=== PATIENT | male | born 1960 | race Caucasian/White ===

== ENCOUNTER 2022-08-15 19:14 | Emergency (ER) | payer OTHER, SELFPAY ==
--- NOTE | ~2022-08-15 | CT_ITS ---
EXAMINATION: CT CERVICAL SPINE WITHOUT CONTRAST CLINICAL INFORMATION: Trauma COMPARISON: None TECHNIQUE: Axial imaging with coronal and sagittal reformatted images. This CT examination was performed using dose optimization techniques as appropriate, variously including the following: *Automated exposure control *Adjustment of mA and/or kV according to patient size (this includes techniques or standardized protocols for targeted exams where dose is matched to indication/reason for exam; i.e. extremities or head) *Use of iterative reconstruction technique DLP: 289 mGy-cm FINDINGS: Degenerative changes. No acute fracture or dislocation. Mixed solid and linear density in the right upper lung. Measures 1.[address]/CT cervical spine wo IV con IMPRESSION: No fracture or dislocation of the cervical spine. Degenerative changes are noted. There is a mixed solid and linear density in the right upper lung. CT would be recommended the chest to fully evaluate. This may be done on an outpatient basis.
--- NOTE | ~2022-08-15 | CT_ITS ---
CT head/brain wo IV con CLINICAL INFORMATION: Head strike COMPARISON: No prior CT scan available for comparison. TECHNIQUE: Department standard protocol. This CT examination was performed using dose optimization techniques as appropriate, variously including the following: *Automated exposure control *Adjustment of mA and/or kV according to patient size (this includes techniques or standardized protocols for targeted exams where dose is matched to indication/reason for exam; i.e. extremities or head) *Use of iterative reconstruction technique DLP: 888 mGy-cm FINDINGS: CEREBRAL HEMISPHERES: There is no evidence of intra-axial or extra-axial mass, hemorrhage or acute infarct. BRAIN PARENCHYMA: Normal lima-white matter differentiation. SUBDURAL SPACE: No bleed. BASAL GANGLIA AND PINEAL GLAND: Unremarkable VENTRICLES: Symmetric and normal in size. CEREBELLUM AND BRAINSTEM: No space-occupying mass, hemorrhage or acute infarct. CEREBELLOPONTINE ANGLES: No lesion found. ORBITS: No intraorbital mass. VESSELS: Unremarkable SKULL BASE: Unremarkable INCLUDED SINUSES AT SKULL BASE: Clear SKULL AND SKIN: No fracture or bone lesion found. CT/CT head/brain wo IV con IMPRESSION: No CT evidence of intracranial space-occupying mass, bleed or infarct.
--- NOTE | ~2022-08-15 | XR_ITS ---
EXAMINATION: XR CHEST CLINICAL INFORMATION: Fall COMPARISON: None TECHNIQUE: Frontal view of the chest was obtained. FINDINGS: There is no displaced fracture seen. No pneumothorax. No effusion. Low lung volumes. Mild basilar markings. Cardiac silhouette is within normal limits. The mediastinum does not appear widened. XR/XR chest 1V IMPRESSION: No acute finding. Mild bilateral basilar markings are noted.
[2022-08-15 19:18] VITALS: BP 128/76; PULSE 86; RESP 18; O2SAT 98; BMI 21.7
--- NOTE | 2022-08-15 19:21 | ECG_ITS ---
Test Reason : fall Blood Pressure : / mmHG Vent. Rate : 076 BPM Atrial Rate : 076 BPM P-R Int : 130 ms QRS Dur : 084 ms QT Int : 394 ms P-R-T Axes : 071 032 051 degrees QTc Int : 443 ms Normal sinus rhythm Normal ECG No previous ECGs available Referred By: Kaushal Joiner Electronically Signed By:Ankur Mcrae
[2022-08-15 19:23] VITALS: BP 146/77; PULSE 86; RESP 18; O2SAT 97
--- NOTE | 2022-08-15 19:25 | ED_ITS ---
HPI - General Adult General Chief complaint: Head Injury Stated complaint: etoh/fall Time Seen by Provider: 08/15/22 19:20 Source: patient, EMS and police Mode of arrival: EMS Limitations: other (alcohol) History of Present Illness HPI narrative: This is a 62-year-old male presenting to department for evaluation of acute alcohol intoxication, patient very intoxicated unable to provide history review of systems. However, according to EMS patient had a witnessed fall with head strike, no loss of consciousness, patient is not on blood thinners. Patient has been drinking all day. Patient uncooperative on arrival. Refused C-collar for EMS and was refusing when here. Unable to obtain history review of systems from patient. Related Data Allergies Allergy/AdvReac Type Severity Reaction Status Date / Time diphenhydramine Allergy Unknown SWELLING Unverified 02/21/20 16:13 [From [facility]] Review of Systems Review of Systems: Yes Unobtainable due to mental status PMFSH Past Medical History Attestation statement: The following information was validated with the patient. Source: old records reviewed and nursing notes reviewed Social History Social History Advance Directives: No Advance Directives Information Provided: No Physical Exam ED Vital Signs: Vital Signs - 24 hr 08/15/22 19:18 08/15/22 19:23 08/15/22 19:44 Temperature 98.0 F Pulse Rate 86 86 78 Respiratory Rate 18 18 16 Blood Pressure 128/76 146/77 H 142/86 H Pulse Oximetry 98 97 98 Oxygen Delivery Method Room Air Room Air Room Air BMI result Body Mass Index 21.7 vss Appearance: Alert.? Oriented X3.? No acute distress.?Smells like alcohol Head: Normocephalic, atraumatic, no step-offs or deformities + hematoma to the left side of occiput Eyes: Pupils equal, round and reactive to light.? Neck: Normal inspection.? Neck supple.? CVS: Normal heart rate and rhythm.? Pulses normal.? Respiratory: No respiratory distress.? Breath sounds normal.? Abdomen: Soft and nontender.? Skin: Skin warm and dry.? Normal skin color.? Normal skin turgor.? Extremities: No lower extremity edema.? No calf ttp. 5/5 strength to bilateral upper and lower extremities Back: No midline tenderness, no C-spine tenderness, full range of motion, no CVA tenderness bilaterally Neuro: Oriented X 3.? No motor deficit.? No sensory deficit. CN 2-12 intact . Ambulating w/ steady gait and normal coordinaiton Course Reevaluation(s) Reevaluation #1: CBC appears to be around normal limits. It does however show a normocytic anemia which is likely patient's baseline. Chemistry with no acute electrolyte abnormalities requiring intervention. Coags normal. UA without infection. Urine toxicology negative. Ethanol level 330 consistent with acute alcohol intoxication. Patient COVID negative. Head CT with no evidence of intracranial space-occupying mass bleed or infarct. No fracture dislocation of the cervical spine. Degenerative changes noted. Mixed solid and linear density in the right upper lung, chest CT recommended on an outpatient basis, will attach these results to patient's discharge with recommendations. No acute findings in the chest x-ray. Mild bilateral bibasilar markings are noted. Patient vital signs stable. Alert and oriented, ambulating with steady gait. At this time patient will be placed into observation to allow more time for patient to reach clinical sobriety. At time patient is sober patient can be discharged home with safe ride. Educated patient on diagnosis and treatment plan, answered all question, patient verbalizes understanding. At this time patient will be discharged home, advised to return with new or worsening symptoms. Educated on worrisome signs and symptoms and when to return. At this time I feel comfortable discharge home. Time: 21:50 Medical Decision Making Medical Decision Making [facility] Narrative: 1919 62 year old male presents w/ acute alcohol intoxication and whitnessed fall w/ head strike wo LOC. Limited history and review of systems secondary to patient being very intoxicated. Patient uncooperative on arrival, Physical examination with small hematoma to the posterior aspect left occiput with dry blood. No active bleeding. Neuro nonfocal. GCS 15. Likely alcohol intoxication with concussion without loss of consciousness. Unlikely intracranial hemorrhage, stroke, posterior stroke. I do not suspect metabolic disturbances however will rule out electrolyte abnormalities. Plan medical clearance in sobriety. Will obtain head imaging. No need for repair as patient has hematoma is non bleeding and has dried blood Differential Diagnosis Differential Diagnoses: The differential diagnosis associated with the presentation includes Likely alcohol intoxication with concussion without loss of consciousness. Unlikely intracranial hemorrhage, stroke, posterior stroke. I do not suspect metabolic disturbances however will rule out electrolyte abnormalities. Admission/Observation Consideration of admission/observation: Escalation of care including admission/observation considered Unlikely Lab Data MDM Lab Attestation statement: I reviewed the patient's lab results. 08/15/22 19:35 08/15/22 19:35 Labs: Lab Results 08/15/22 08/15/22 08/15/22 Range/Units 19:35 19:35 19:35 WBC 6.8 (4.8-10.8) X10*3/uL RBC 4.40 L (4.60-5.80) X10*6/uL Hgb 13.4 L (14.0-18.0) g/dl Hct 41.2 L (42.0-52.0) % MCV 93.6 (80.0-98.0) fL MCH 30.5 (27.0-33.0) pg MCHC 32.5 (31.0-36.0) g/dl RDW 14.0 (11.0-16.0) % Plt Count 303 (160-400) X10*3/uL MPV 9.0 L (9.4-12.4) fL Immature Gran % (Auto) 0.3 (0.0-0.4) % Neut % (Auto) 64.9 (45-73) % Lymph % (Auto) 27.3 (20-40) % [place] % (Auto) 5.8 (2-11) % Eos % (Auto) 0.7 (0-4) % Baso % (Auto) 1.0 (0-2) % Lymph # (Auto) 1.9 (1.2-4.9) X10*3/uL [place] # (Auto) 0.4 (0.1-1.2) X10*3/uL Eos # (Auto) 0.1 (0.0-0.4) X10*3/uL Baso # (Auto) 0.1 (0.0-0.2) X10*3/uL Abs Immat Gran (auto) 0.02 (0.00-0.03) X10*3/uL Absolute Neuts (auto) 4.4 (2.0-8.3) x10*3/uL Absolute Nucleated RBC 0.000 (0.0-0.012) X10*3/uL Nucleated RBC % (auto) 0.0 (0.0-0.2) /100WBC PT 10.2 (10.0-13.1) SEC INR 0.9 (0.9-1.1) Sodium 135 (135-145) mmol/L Potassium 4.2 (3.3-5.1) mmol/L Chloride 100 (96-108) mmol/L Carbon Dioxide 26 (22-29) mmol/L Anion Gap 13 (12-20) BUN 11 (9-16) mg/dL Creatinine 0.81 (0.5-1.4) mg/dL Estim Creat Clear Calc 81.8 Estimated GFR > 60 Random Glucose 109 (60-115) mg/dL Calcium 8.9 (8.4-10.2) mg/dL Magnesium 2.2 (1.6-2.6) mg/dL Total Bilirubin 0.4 (0.0-1.0) mg/dL AST 31 (5-37) U/L ALT 16 (0-40) U/L Alkaline Phosphatase 98 (39-117) U/L Total Protein 7.2 (6.5-8.0) g/dL Albumin 4.3 (3.5-5.0) g/dL Urine Color Urine Appearance Urine pH (5.0-9.0) Ur Specific Newton (1.005-1.025) Urine Protein (Neg-Trace) mg/dL Urine Glucose (UA) (Negative) mg/dL Urine Ketones (Negative) mg/dL Urine Blood (Negative) Urine Nitrite (Negative) Ur Leukocyte Esterase (Negative) Urine Opiates Screen (Not Detect) Urine Fentanyl Screen (Not Detect) Ur Barbiturates Screen (Not Detect) Ur Phencyclidine Scrn (Not Detect) Ur Amphetamines Screen (Not Detect) U Benzodiazepines Scrn (Not Detect) Urine Cocaine Screen (Not Detect) U Marijuana (THC) Screen (Not Detect) Ethyl Alcohol 330 H* mg/dL COVID-19 (DEANDRA) (Negative) COVID-19 Clin Com 08/15/22 08/15/22 08/15/22 Range/Units 19:35 20:07 20:08 WBC (4.8-10.8) X10*3/uL RBC (4.60-5.80) X10*6/uL Hgb (14.0-18.0) g/dl Hct (42.0-52.0) % MCV (80.0-98.0) fL MCH (27.0-33.0) pg MCHC (31.0-36.0) g/dl RDW (11.0-16.0) % Plt Count (160-400) X10*3/uL MPV (9.4-12.4) fL Immature Gran % (Auto) (0.0-0.4) % Neut % (Auto) (45-73) % Lymph % (Auto) (20-40) % [place] % (Auto) (2-11) % Eos % (Auto) (0-4) % Baso % (Auto) (0-2) % Lymph # (Auto) (1.2-4.9) X10*3/uL [place] # (Auto) (0.1-1.2) X10*3/uL Eos # (Auto) (0.0-0.4) X10*3/uL Baso # (Auto) (0.0-0.2) X10*3/uL Abs Immat Gran (auto) (0.00-0.03) X10*3/uL Absolute Neuts (auto) (2.0-8.3) x10*3/uL Absolute Nucleated RBC (0.0-0.012) X10*3/uL Nucleated RBC % (auto) (0.0-0.2) /100WBC PT (10.0-13.1) SEC INR (0.9-1.1) Sodium (135-145) mmol/L Potassium (3.3-5.1) mmol/L Chloride (96-108) mmol/L Carbon Dioxide (22-29) mmol/L Anion Gap (12-20) BUN (9-16) mg/dL Creatinine (0.5-1.4) mg/dL Estim Creat Clear Calc Estimated GFR Random Glucose (60-115) mg/dL Calcium (8.4-10.2) mg/dL Magnesium (1.6-2.6) mg/dL Total Bilirubin (0.0-1.0) mg/dL AST (5-37) U/L ALT (0-40) U/L Alkaline Phosphatase (39-117) U/L Total Protein (6.5-8.0) g/dL Albumin (3.5-5.0) g/dL Urine Color Yellow Urine Appearance Clear Urine pH 5.5 (5.0-9.0) Ur Specific Newton <= 1.005 (1.005-1.025) Urine Protein Negative (Neg-Trace) mg/dL Urine Glucose (UA) Negative (Negative) mg/dL Urine Ketones Negative (Negative) mg/dL Urine Blood Negative (Negative) Urine Nitrite Negative (Negative) Ur Leukocyte Esterase Negative (Negative) Urine Opiates Screen Not Detected (Not Detect) Urine Fentanyl Screen Not Detected (Not Detect) Ur Barbiturates Screen Not Detected (Not Detect) Ur Phencyclidine Scrn Not Detected (Not Detect) Ur Amphetamines Screen Not Detected (Not Detect) U Benzodiazepines Scrn Not Detected (Not Detect) Urine Cocaine Screen Not Detected (Not Detect) U Marijuana (THC) Screen Not Detected (Not Detect) Ethyl Alcohol mg/dL COVID-19 (DEANDRA) Negative (Negative) COVID-19 Clin Com See Note Independent Interpretation I performed an independent interpretation of an: Plain X-Ray and CT Scan Radiology Impression Discussion of test interpretation with radiology: I have reviewed the radiologist's reading. Core Measures AMI core measures followed: Yes Measure exclusions: not indicated Critical Care Time Critical Care Time Critical Care Time: No Discharge Plan Discharge Clinical Impression: Concussion without loss of consciousness, Fall, Alcohol intoxication, Traumatic hematoma of head Patient Disposition: Still a Patient Additional Instructions: Take your medications as prescribed. If you were prescribed antibiotics today, it is important that you take your medication to their entirety, do not skip any doses, do not finish them early. Follow-up with your primary care provider this week. Return to the emergency department with new or worsening symptoms. Such as fevers, chills, chest pain, shortness of breath, nausea, vomiting, dizziness, headache, vision changes, lethargy In case of emergency call 911 CT/CT head/brain wo IV con IMPRESSION: No CT evidence of intracranial space-occupying mass, bleed or infarct. CT/CT cervical spine wo IV con IMPRESSION: No fracture or dislocation of the cervical spine. Degenerative changes are noted. ? ? There is a mixed solid and linear density in the right upper lung. CT would be recommended the chest to fully evaluate. This may be done on an outpatient basis. ? XR/XR chest 1V IMPRESSION: No acute finding. Mild bilateral basilar markings are noted. ? Referrals: Physician,Unknown J [Primary Care Provider] - 2 days
--- NOTE | 2022-08-15 19:32 | PC.NURSE ---
pt comes in w/ PD for an unwitnessed fall questioning if pt is intoxicated he is alert and oriented x3 pt claims head injury occurred 3 yrs ago, but it is observed that it is a recent head injury due to the blood observed pt changed over into hospital attire no apparent distress
[2022-08-15 19:44] VITALS: BP 142/86; PULSE 78; RESP 16; TEMP 36.7; O2SAT 98
[2022-08-15 19:44] LABS: MANUAL DIFF FLAG NO
[2022-08-15 19:47] LABS: Basophils Absolute Auto 0.1 X10*3/uL (0.0-0.2); Eosinophils Absolute Auto 0.1 X10*3/uL (0.0-0.4); Eosinophils Percent Auto 0.7 % (0-4); Hematocrit 41.2 % (42.0-52.0); Hemoglobin 13.4 g/dl (14.0-18.0); Imm Gran Abs Auto 0.02 X10*3/uL (0.00-0.03); Imm Gran Pct Auto 0.3 % (0.0-0.4); Lymphocytes Absolute Auto 1.9 X10*3/uL (1.2-4.9); Lymphocytes Percent Auto 27.3 % (20-40); Mean Corpuscular HGB Conc 32.5 g/dl (31.0-36.0); Mean Corpuscular Hemoglobin 30.5 pg (27.0-33.0); Mean Corpuscular Volume 93.6 fL (80.0-98.0); Monocytes Absolute Auto 0.4 X10*3/uL (0.1-1.2); Monocytes Percent Auto 5.8 % (2-11); Neutrophils Absolute Auto 4.4 x10*3/uL (2.0-8.3); Neutrophils Percent Auto 64.9 % (45-73); Platelet Count 303 X10*3/uL (160-400); White Blood Count 6.8 X10*3/uL (4.8-10.8)
--- NOTE | 2022-08-15 19:48 | MHC.EDTECH ---
PT VITALS SIGN TAKEN ,WARM BLANKET GIVEN .
[2022-08-15 20:06] LABS: Alanine Aminotransferase 16 U/L (0-40); Albumin Level 4.3 g/dL (3.5-5.0); Alkaline Phosphatase 98 U/L (39-117); Anion Gap 13 (12-20); Aspartate Amino Transferase 31 U/L (5-37); Bilirubin Total 0.4 mg/dL (0.0-1.0); Blood Urea Nitrogen 11 mg/dL (9-16); Calcium 8.9 mg/dL (8.4-10.2); Carbon Dioxide 26 mmol/L (22-29); Chloride 100 mmol/L (96-108); Creatinine Clr Calc Pharmacy 81.8; Estimated Glomerular Filt Rate > 60; Ethanol 330 mg/dL; Glucose Random 109 mg/dL (60-115); Magnesium 2.2 mg/dL (1.6-2.6); Potassium 4.2 mmol/L (3.3-5.1); Sodium 135 mmol/L (135-145); Total Protein 7.2 g/dL (6.5-8.0)
[2022-08-15 20:07] LABS: INTERNATIONAL NORM RATIO 0.9 (0.9-1.1); Prothrombin Time 10.2 SEC (10.0-13.1)
[2022-08-15 20:18] LABS: COVID-19 Test Negative (Negative); IDNOW Serial# BCCEAD1C
[2022-08-15 20:18] LABS: Appearance Urine Clear; Color Urine Yellow; Glucose Urine UA Negative (Negative); Leukocyte Esterase Urine Negative (Negative); Nitrite Urine Negative (Negative); PH 5.5 (5.0-9.0); Specific Gravity - Urine <= 1.005 (1.005-1.025); Urine Blood Negative (Negative); Urine Ketones Negative (Negative); Urine Protein Negative (Neg-Trace)
[2022-08-15 20:30] LABS: Amphetamine Screen Urine Not Detected (Not Detect); Barbiturates, Urine Not Detected (Not Detect); Benzodiazepines Screen Urine Not Detected (Not Detect); Cannabinoid Screen Urine Not Detected (Not Detect); Cocaine Screen Urine Not Detected (Not Detect); Fentanyl, urine Not Detected (Not Detect); Opiate Screen Urine Not Detected (Not Detect); Phencyclidine Screen Urine Not Detected (Not Detect)
[2022-08-15 22:00] VITALS: BP 117/72; PULSE 81; RESP 16; TEMP 36.6; O2SAT 98
[2022-08-15 23:32] VITALS: BP 102/59; PULSE 78; RESP 16; TEMP 36.8; O2SAT 98
--- NOTE | 2022-08-15 23:52 | MHC.EDTECH ---
0000 vitals sign done ,warm blanket given .
--- NOTE | 2022-08-15 23:53 | MHC.EDTECH ---
gram cracker and coffee given for snack .
--- NOTE | 2022-08-16 00:04 | MHC.EDTECH ---
pt said he was hungry ,turkey sandwich and orange juice given .
[2022-08-16 02:00] VITALS: BP 92/53; PULSE 86; RESP 16; TEMP 36.4; O2SAT 96
--- NOTE | 2022-08-16 02:26 | MHC.EDTECH ---
0200 rounding done ,vitals sign taken pt sleeping ,was awake when vitals sign was taken .
[2022-08-16 05:45] VITALS: BP 104/70; PULSE 70; RESP 19; TEMP 36.8; O2SAT 97
--- NOTE | 2022-08-16 06:11 | PC.NURSE ---
Discharge instructions given/explained, no apparent distress, steady gait
== END 2022-08-16 06:09 | disposition home or self-care (01) ==
PROVIDERS: Physician Assistant; Emergency Provider Emergency Medicine
DX: S06.0X0A Concussion without loss of consciousness, initial encounter (principal); S00.03XA Contusion of scalp, initial encounter; F10.129 Alcohol abuse with intoxication, unspecified; M54.2 Cervicalgia; R51.9 Headache, unspecified; Y90.8 Blood alcohol level of 240 mg/100 ml or more; W18.30XA Fall on same level, unspecified, initial encounter; Y93.9 Activity, unspecified; Y92.9 Unspecified place or not applicable; Y99.9 Unspecified external cause status; Z20.822 Contact with and (suspected) exposure to COVID-19; Z20.828 Contact with and (suspected) exposure to other viral communicable diseases; Z79.899 Other long term (current) drug therapy; Z71.41 Alcohol abuse counseling and surveillance of alcoholic
CPT/HCPCS: 36415; 70450; 71045; 72125; 80053; 80307; 81003; 82077; 83735; 85025; 85610; 87635; 93005; 99285

== ENCOUNTER 2025-01-05 01:02 | Emergency (ER) | payer OTHER, SELFPAY ==
[2025-01-05 01:15] VITALS: BP 115/103; BP 180/90; PULSE 77; PULSE 83; RESP 16; TEMP 36.6; O2SAT 98; BMI 21.5
[2025-01-05 01:27] VITALS: BP 115/103; PULSE 83; RESP 16; TEMP 36.6; O2SAT 98
--- NOTE | 2025-01-05 02:01 | ED_ITS ---
HPI - Alcohol General Chief Complaint: ETOH/Substance Use Stated Complaint: ETOH Time Seen by Provider: 01/05/25 01:10 Source: patient and EMS Mode of arrival: EMS Limitations: other ( Intoxicated) History of Present Illness ED Provider: Dr. Ernestina Maria HPI narrative: patient comes to the emergency room via ambulance. Patient was found intoxicated outside of a bar. Patient is awake, alert and oriented x3, states that he did not have any injuries, no falls, patient admits to drinking alcohol. Patient denies SI or HI. Related Data Allergies Allergy/AdvReac Type Severity Reaction Status Date / Time diphenhydramine (From Allergy Unknown SWELLING Verified 01/05/25 01:16 BENADRYL) Review of Systems Review of Systems: Constitutional : No Weight loss, No Fever, No Chills, No Night Sweats, No Fatigue, No Malaise ENT/Mouth : No Hearing loss, No Ear Pain, No Nasal Congestion, No Sinus Pain, No Hoarseness, No sore throat, No Rhinorrhea, No Swallowing Difficulty Eyes: No Eye Pain, No Swelling, No Redness, No Foreign Body, No Discharge, No Vision Changes Cardiovascular : No Chest Pain, No SOB, No Dyspnea on Exertion, No Orthopnea, No Edema, No Palpitations Respiratory : No Cough, No Sputum, No Wheezing, No Smoke Exposure, No Dyspnea Gastrointestinal : No Nausea, No Vomiting, No Diarrhea, No Constipation, No abdominal Pain, No Hematochezia, No Melena Genitourinary : no irregular bleeding, No Dysuria, No Urinary Frequency, No Hematuria, No Urinary Incontinence, No Urgency, No Flank Pain, No Urinary Flow Changes, No Hesitancy Musculoskeletal : No joint pain, No Myalgias, No Joint Swelling Skin : No Skin Lesions, No rash Neuro : No Weakness, No Numbness, No Paresthesias, No Loss of Consciousness, No Dizziness, No Headache Psych : No Anxiety/Panic, No Depression, No SI/HI/AH/VH, Admits to drinking alcohol today Heme/Lymph: No Bruising, No Bleeding,No Lymphadenopathy Endocrine : No Polyuria, No Polydipsia, No Temperature Intolerance [facility] Social History Social History Alcohol intake: current Alcohol intake frequency: 3 or more drinks per day Alcohol type: beer, wine and hard liquor Smoked in Last 30 Days: Yes Use of substances other than those prescribed or required for medical reasons: No Physical Exam ED Exam Exam: Appearance: Alert. Oriented X3. No acute distress. a bit intoxicated but still able to answer coherently Eyes: Pupils equal, round and reactive to light. ENT: Pharynx normal. Neck: Normal inspection. Neck supple. No lymph nodes noted. No crepitus CVS: Normal heart rate and rhythm. Pulses normal. Normal S1 and S2 Respiratory: No respiratory distress. Breath sounds normal. No Wheezing. No rales Abdomen: Soft and nontender. No rigidity. No distention. Skin: Skin warm and dry. Normal skin color. Normal skin turgor. Extremities: No lower extremity edema. No Lacerations. No Rash Neuro: Oriented X 3. No motor deficit. No sensory deficit. Moving all extremities. No slurred speech. CN 2 through 12 grossly intact Psych: calm, cooperative, normal affect Vital Signs: Vital Signs - 24 hr 01/05/25 01:15 01/05/25 01:27 Temperature 97.8 F 97.8 F Pulse Rate 83 83 Respiratory Rate 16 16 Blood Pressure 115/103 H 115/103 H Pulse Oximetry 98 98 Oxygen Delivery Method Room Air Room Air BMI result Body Mass Index 21.5 Course Course Course Narrative: patient admits to drinking alcohol. Denies drug use, denies SI or HI patient's vitals stable patient denies any falls patient is not interested in detox patient states that he feels well, has no complaints, declines any labs we will keep the patient under physician observation until he is sober enough to be discharged. Medical Decision Making Differential Diagnosis Differential Diagnoses: The differential diagnosis associated with the presentation includes ( Alcohol intoxication, alcohol dependence, polysubstance abuse) Admission/Observation Consideration of admission/observation: Escalation of care including admission/observation considered ( patient is under physician observation waiting to become sober and to be discharged) Critical Care Time Critical Care Time Critical Care Time: Yes Total Critical Care Time: 35 Attestation: I have personally provided critical care time. Time includes review of lab data, radiology results, discussion with consultants, and monitoring for potential decompensation. Intervention performed as documented. Discharge Plan Discharge Clinical Impression: Alcoholic intoxication Patient Disposition: Home, Self-Care Instructions: Alcohol Intoxication (ED) Additional Instructions: Alcohol use disorder You were seen in the Emergency Department today for treatment of alcohol use disorder.? You may have been given medications to help with your withdrawal symptoms.? Please do not drink alcohol with them. This is very dangerous and can cause respiratory depression or other adverse reactions depending on the medication. If you would like to cut down or stop your alcohol use please consider calling our outpatient Addiction Treatment office:? [facility] (M-F [id number]) [address] [place] [address] [address] ? You have also been given a list of treatment providers in the area that can assist as well.? If you experience seizures, vomiting blood, black stools, falls, severe headache, chest pain, fevers, trouble breathing, hallucinations or any other concerns you need to call 911 or seek immediate care. Please stay hydrated. Print Language: German
[2025-01-05 06:15] VITALS: BP 137/61; PULSE 96; RESP 16; TEMP 36.6; O2SAT 98
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
[2025-01-05 07:23] VITALS: BP 137/61; PULSE 96; RESP 16; TEMP 36.6; O2SAT 98
== END 2025-01-05 07:24 | disposition home or self-care (01) ==
PROVIDERS: Emergency Provider Emergency Medicine; PCP Internal Medicine
DX: F10.129 Alcohol abuse with intoxication, unspecified (principal)
CPT/HCPCS: 99284; 99291